=== PATIENT | female | born 1960 | race Caucasian/White ===

== ENCOUNTER 2025-04-03 08:34 | Day surgery (SDC) | payer BC ==
[2025-04-03] MEDS ORDERED: fentaNYL 50 MCG/ML SDV ONE (09:01)
[2025-04-03] MEDS ORDERED: Propofol 200 MG/20 ML SDV ONE (09:01)
[2025-04-03] MEDS: Lactated Ringers 1,000 ML IV SCH (09:08)
== END 2025-04-03 12:02 | disposition home or self-care (01) ==
LOC: JP.SDS 08:34
PROVIDERS: ATTEND Surgery
DX: Z12.11 Encounter for screening for malignant neoplasm of colon (principal); Z88.8 Allergy status to other drugs, medicaments and biological substances
CPT/HCPCS: 00811; 45380; 88305; J2704; J3010; J7120